=== PATIENT | male | born 1950 | race Caucasian/White ===

== ENCOUNTER → 2019-11-22 13:00 | Outpatient (CLI) | payer OTHER | END | disposition home or self-care (01) | LOC: D.HCCECHO 13:00 | PROVIDERS: ATTEND Internal Medicine Cardiovascular Disease | DX: I10 Essential (primary) hypertension (principal) ==

== ENCOUNTER 2020-02-10 14:30 | Inpatient (IN) | payer MEDICARE ==
[~2020-02-10] VITALS: Ht 182.9 cm; Wt 99.3 kg
[2020-02-10] MEDS ORDERED: GLUCOPHAGE XR750 MG PO (14:43)
[2020-02-10] MEDS ORDERED: BENTYL 20 MG TA20 MG PO (15:00)
[2020-02-10] MEDS ORDERED: SULFAZINE EC500 MG PO (15:01)
[2020-02-10] MEDS ORDERED: BENICAR40 MG PO (15:01)
[2020-02-10] MEDS ORDERED: HYDROCHLOROTH12.5 M1 PO (15:01)
[2020-02-10] MEDS ORDERED: NORVASC5 MG PO (15:01)
[2020-02-10] MEDS ORDERED: GEMFIBROZIL600 MG PO (15:02)
[2020-02-10] MEDS ORDERED: LIPITOR40 MG PO (15:02)
[2020-02-10 15:22] LABS: CALC OSMOLALITY 298 mosm/kg (275-300); CALCIUM 8.6 mg/dL (8.5-10.1); CHLORIDE - SERUM 101 mmol/L (98-107); GLUCOSE 124 mg/dL (74-106); SODIUM 136 mmol/L (136-145); UREA NITROGEN 86 mg/dL (7-18); eGFR NON AFRICAN AMERICAN 8 mL/min (90-120)
[2020-02-10 15:30] LABS: ALBUMIN 4.2 g/dL (3.4-5.0); ALKALINE PHOSPHATASE 102 U/L (30-120); ALT (SGPT) 26 U/L (10-68); BILIRUBIN - TOTAL 0.82 mg/dL (0.2-1.3); MAGNESIUM - SERUM 2.1 mg/dL (1.8-2.4); PROTEIN - SERUM 7.5 g/dL (6.4-8.2)
[2020-02-10 15:31] LABS: TROPONIN-I < 0.017 ng/mL (0.000-0.060)
[2020-02-10 15:43] LABS: BASOPHILS 0.2 % (0-2); EOSINOPHILS 0.5 % (0-7); IMMATURE GRANULOCYTES 0.4 % (0-5); MCHC 34.9 g/dL (31.0-37.0); MCV 94.7 fL (80.0-100.0); MEAN PLATELET VOLUME 10.6 fL (7.4-10.4); MONOCYTES 9.9 % (2-11); PLATELET COUNT 214 10x3/uL (130-400); RBC 4.54 10x6/uL (4.20-6.10); RDW 12.3 % (11.5-14.5); WBC 8.5 10x3/uL (4.8-10.8)
[2020-02-10 17:21] VITALS: BP 113/61
--- NOTE | 2020-02-10 17:25 | NUR ---
URINE SAMPLE OBTAINED AND SENT TO LAB
[2020-02-10 18:06] LABS: BILIRUBIN NEGATIVE (NEGATIVE); KETONE NEGATIVE (NEGATIVE); NITRITE NEGATIVE (NEGATIVE); UROBILINOGEN NORMAL mg/dL (< 2)
[2020-02-10 18:32] VITALS: BP 111/61
[2020-02-10 20:21] VITALS: BP 117/66
[2020-02-10 22:37] VITALS: BP 113/64
[2020-02-11 02:24] VITALS: BP 91/52
--- NOTE | 2020-02-11 02:28 | NUR ---
PT RESTING SUPINE POSITION, VSS. ARROUSES TO VERBAL STIMULI. DENIES CURRENT NEEDS AT THIS TIME. WILL CONTINUE TO MONITOR.
[2020-02-11 03:00] VITALS: BP 91/54
--- NOTE | 2020-02-11 03:50 | NUR ---
PT AMBULATED TO RESTROOM AT THIS TIME WITH STEADY GAIT. DENIES CURRENT NEEDS.
[2020-02-11 04:00] VITALS: BP 101/59
--- NOTE | 2020-02-11 04:07 | NUR ---
STOP TIME FLAGYL [id number].
--- NOTE | 2020-02-11 04:45 | NUR ---
PT RESTING, ON MONITOR. WILL CONTINUE TO MONITOR.
[2020-02-11 05:00] VITALS: BP 95/49
[2020-02-11 08:12] LABS: ANION GAP 17.2 mmol/L (8-16); CALCIUM 8.3 mg/dL (8.5-10.1); CARBON DIOXIDE 17.5 mmol/L (21.0-32.0); PHOSPHOROUS 4.6 mg/dL (2.5-4.9)
[2020-02-11 08:14] LABS: CREATININE - SERUM 3.2 mg/dL (0.6-1.3)
[2020-02-11 08:16] LABS: POTASSIUM - SERUM 2.7 mmol/L (3.5-5.1)
[2020-02-11 08:39] LABS: BASOPHILS 0.2 % (0-2); EOSINOPHILS 2.7 % (0-7); HEMATOCRIT 39.6 % (42.0-54.0); HEMOGLOBIN 13.8 g/dL (13.5-17.5); IMMATURE GRANULOCYTES 0.2 % (0-5); LYMPHOCYTES 21.1 % (15-50); MCH 32.9 pg (26.0-34.0); MCHC 34.8 g/dL (31.0-37.0); MCV 94.5 fL (80.0-100.0); MEAN PLATELET VOLUME 10.4 fL (7.4-10.4); MONOCYTES 10.3 % (2-11); NEUTROPHILS 65.5 % (40-80); PLATELET COUNT 197 10x3/uL (130-400); RBC 4.19 10x6/uL (4.20-6.10); RDW 12.2 % (11.5-14.5)
[2020-02-11 08:43] LABS: WBC 4.4 10x3/uL (4.8-10.8)
--- NOTE | 2020-02-11 08:43 | NUR ---
CRITICAL POTASSIUM REPORTED TO DR. TORRES. ORDERS RECEIVED. PLEASE SEE MAR.
[2020-02-11 08:59] LABS: ALBUMIN 3.6 g/dL (3.4-5.0); ANION GAP 18.2 mmol/L (8-16); BILIRUBIN - TOTAL 0.81 mg/dL (0.2-1.3); CALCIUM 8.1 mg/dL (8.5-10.1); CARBON DIOXIDE 18.5 mmol/L (21.0-32.0); CREATININE - SERUM 3.1 mg/dL (0.6-1.3)
[2020-02-11 09:00] LABS: POTASSIUM - SERUM 2.7 mmol/L (3.5-5.1)
--- NOTE | 2020-02-11 09:21 | NUR ---
SPOKE TO RANJIT AT [facility] FOR [facility] CONSULT. INFORMATION GIVEN
--- NOTE | 2020-02-11 09:23 | NUR ---
SPOKE TO VOISE, AWARE OF CONSULT
[2020-02-11 09:40] LABS: ERYTHROCYTE SEDIMENTATION RATE 10 mm/hr (0-20)
[2020-02-11 12:32] VITALS: BP 108/62
[2020-02-11 14:20] VITALS: Ht 182.9 cm; Wt 99.3 kg
[2020-02-11 20:00] VITALS: BP 113/64
--- NOTE | 2020-02-11 20:03 | NUR ---
INITIAL ROUNDS AND ASSESSMENT COMPLETED. CALL LIGHT IN REACH. NO DISTRESS.
--- NOTE | 2020-02-11 21:01 | NUR ---
BEDTIME MEDS GIVEN. IV SOLUMEDROL ADMINISTERED. IVF NS + 20KCL INFUSING AT 125MLHR TO RFA. PT ALERT AND WATCHING TV/HOCKEY. CPOC. NONLABORED RESPIRATIONS ON ROOM AIR.
[2020-02-12 05:47] LABS: BASOPHILS 0 % (0-2); EOSINOPHILS 0 % (0-7); HEMATOCRIT 34.4 % (42.0-54.0); IMMATURE GRANULOCYTES 0.4 % (0-5); LYMPHOCYTES 12.2 % (15-50); MCH 32.7 pg (26.0-34.0); MCHC 34.9 g/dL (31.0-37.0); MCV 93.7 fL (80.0-100.0); MONOCYTES 5.8 % (2-11); NEUTROPHILS 81.6 % (40-80); PLATELET COUNT 201 10x3/uL (130-400); RBC 3.67 10x6/uL (4.20-6.10); RDW 12.2 % (11.5-14.5)
[2020-02-12 06:11] LABS: IMMUNOGLOBULIN A 207 mg/dL (61-437); IMMUNOGLOBULIN G 598 mg/dL (603-1613)
[2020-02-12 06:14] LABS: ANION GAP 13.5 mmol/L (8-16); CALCIUM 8.3 mg/dL (8.5-10.1); CARBON DIOXIDE 21.7 mmol/L (21.0-32.0)
[2020-02-12 06:19] LABS: CREATININE - SERUM 1.5 mg/dL (0.6-1.3); PHOSPHOROUS 3.3 mg/dL (2.5-4.9); POTASSIUM - SERUM 3.2 mmol/L (3.5-5.1)
[2020-02-12 08:24] VITALS: BP 87/48
[2020-02-12 08:40] VITALS: BP 120/54
--- NOTE | 2020-02-12 08:40 | NUR ---
NOTIFIED BY RADAR ENGINEERING TEACHER OF BP OF 87/48, RECHECKED BP MANUALLY AND IT WAS 120/54. DR. LAWRENCE AT BEDSIDE TO ASSESS PT.
[2020-02-12] MEDS ORDERED: ENTOCORT EC3 MG PO ×2 (10:14→10:15)
[2020-02-12] MEDS ORDERED: LOMOTIL 2.5-0.1 EAC1 PO (10:15)
--- NOTE | 2020-02-12 11:37 | NUR ---
PROVIDED VERBAL AND WRITTEN DISCHARGE TEACHING TO PT, AND PT'S SPOUSE, BOTH VERBALIZED UNDERSTANDING. D/C RT HAND IV WITH CATHETER TIP INTACT. HEART MONITOR REMOVED AND TAKEN TO CARBON FURNACE OPERATOR. WHEELED PT TO ER ENTRANCE WITH ALL BELONGINGS. NAD NOTED.
--- NOTE | 2020-02-12 18:08 | MORECARE ---
CASE MANAGEMENT DISCHARGE SUMMARY PATIENT: WALLY GOMES UNIT: [id number] ADM DATE: 02/10/20 AGE: 69 : 50 SEX: M ROOM/BED: D.2113 AUTHOR: DUSTIN DEXTER PHYSICIAN: REFERRING PHYSICIAN: VELIA TORRES MD DATE OF SERVICE: 02/12/20 Discharge Plan Patient Name: WALLY GOMES Facility: [facility]:[place] : 1950 Planned Disposition: Home Anticipated Discharge Date: 02/12/20 Discharge Date: 02/12/2020 Expected LOS: 2 Initial Reviewer: [email or web address] Initial Review Date: 02/12/2020 Generated: 02/12/20 7:08 pm DCPIA - Discharge Planning Initial Assessment Updated by [id number]: Travis Akhtar on 02/12/20 6:08 pm * Is the patient Alert and Oriented? Yes * How many steps to enter\exit or inside your home? 6/0 * PCP Dr. Torres * [facility] [address] * Preadmission Environment Home with Family * ADLs Independent * Equipment Crutch * Other Equipment Shower Bench * List name and contact numbers for known caregivers / representatives who currently or will assist patient after discharge: Randi Gomes - [facility] - [phone] * Verbal permission to speak to the caregivers and representatives has been obtained from the patient. Yes * Community resources currently utilized None * Please name any agencies selected above. n/a * Additional services required to return to the preadmission environment? No * Can the patient safely return to the preadmission environment? Yes * Has this patient been hospitalized within the prior 30 days at any hospital? No Patient Name: WALLY GOMES Page [id number] at 1808 All edits/amendments must be made on the electronic document DICTATION DATE: 02/12/201807 LOCOMOTIVE INSPECTOR: LALA 02/12/201807 RPT#: [id number] DC DATE:02/12/20 STATUS: DIS IN [facility] [address] [place] [address] END OF REPORT
--- NOTE | 2020-02-13 14:19 | MORECARE ---
CASE MANAGEMENT DISCHARGE SUMMARY PATIENT: WALLY GOMES UNIT: [id number] ADM DATE: 02/10/20 AGE: 69 : 50 SEX: M ROOM/BED: D.4943 AUTHOR: DUSTIN DEXTER PHYSICIAN: REFERRING PHYSICIAN: VELIA TORRES MD DATE OF SERVICE: 02/13/20 Discharge Plan Patient Name: WALLY GOMES Facility: [facility]:[place] : 1950 Planned Disposition: Home Anticipated Discharge Date: 02/12/20 Discharge Date: 02/12/2020 Expected LOS: 2 Initial Reviewer: [email or web address] Initial Review Date: 02/12/2020 Generated: 02/13/20 3:19 pm Comments DCP- Discharge Planning Updated by [email or web address]: Travis Akhtar on 02/12/20 5:[address] Patient Name: WALLY GOMES Admission Status: ER Accout number: [id number] Admission Date: 02-10-2020 : 1950 Admission Diagnosis: Attending: BRIAN, Current LOS: 2 Anticipated DC Date: 02-12-2020 Planned Disposition: Home Primary Insurance: [facility] [employer] Discharge Planning Comments: M met with patient and spouse, Randi Gomes ([phone]) to complete initial dc planning assessment. CM educated patient and spouse on the CM role and verbal consent was given by the patient to complete assessment. CM verified patient's address, phone number, and emergency contact phone numbers. Patient lives at Home with his spouse. At discharge patient plans to return home and feels this is a safe discharge. The patient has 6 steps to navigate to enter the home and it is safe. Patient fills his medications at [facility] [address]. CM discussed availability of home health, rehab services, and medical equipment. Patient states no need of DME and stated that he has a shower bench and crutches at home but does not need them. Patient declined HHS, SNF, IPR, DME and no other known discharge needs were discussed at this time. Transportation provider at discharge will be with his Randi. CM will continue to follow and will assist as needed with dc plans/needs. Obstetrics Gyn Physician: Travis Akhtar DCPIA - Discharge Planning Initial Assessment Updated by [email or web address]: Travis Akhtar on 02/12/20 6:08 pm * Is the patient Alert and Oriented? Yes * How many steps to enter\exit or inside your home? 6/0 * PCP Dr. Torres * Pharm[facility] [address] * Preadmission Environment Home with Family * ADLs Independent * Equipment Crutch * Other Equipment Shower Bench * List name and contact numbers for known caregivers / representatives who currently or will assist patient after discharge: Randi Gomes - [facility] - [phone] * Verbal permission to speak to the caregivers and representatives has been obtained from the patient. Yes * Community resources currently utilized None * Please name any agencies selected above. n/a * Additional services required to return to the preadmission environment? No * Can the patient safely return to the preadmission environment? Yes * Has this patient been hospitalized within the prior 30 days at any hospital? No Coverage Notice Reviewer: JONNY Akhtar Notice Issued Date-Time: 02/12/2020 11:22 Notice Type: IM Discharge Notice Notice Delivered To: Patient Relationship to Patient: Self Branch Controller Name: Delivery Method: HAND - Hand Delivered [place] Days: Prior Verbal Notification: Recipient Understood Notice: Yes Recipient Signature: Yes Med Rec Note Co-signed by Attending: Coverage Notice Comment: DC IMM delivered, explained, signed by the patient, and placed in chart. Signed form also left with the patient. Reviewer: JONNY Akhtar Notice Issued Date-Time: 02/12/2020 11:22 Notice Type: Patient Choice Letter Notice Delivered To: Patient Relationship to Patient: Self Branch Controller Name: Delivery Method: HAND - Hand Delivered [place]id[place] Days: Prior Verbal Notification: Recipient Understood Notice: Yes Recipient Signature: Yes Med Rec Note Co-signed by Attending: Coverage Notice Comment: 0 DME/SNF/HHS/IPR Last DP export: 02/12/20 5:08 p Patient Name: WALLY GOMES Page [phone] at 1419 All edits/amendments must be made on the electronic document DICTATION DATE: 02/13/20 1419 CONTACT LENS POLISHER: LALA 02/13/20 1419 RPT#: [id number] DC DATE:02/12/20 STATUS: DIS IN [facility] [address] [place] [address] END OF REPORT
[2020-02-14 15:11] LABS: ANTIGLIADIN IGA 4 units (0-19); ANTIGLIADIN IGG 1 units (0-19)
== END 2020-02-12 12:01 | disposition home or self-care (01) | DRG 386 ==
LOC: D.ER 14:30 → D.EDHOLD 16:10 → D.M2 16:10
PROVIDERS: Family Medicine; Internal Medicine Gastroenterology; ADMIT Family Medicine; ATTEND Family Medicine
DX: K51.90 Ulcerative colitis, unspecified, without complications (principal); N17.9 Acute kidney failure, unspecified; E86.0 Dehydration; E11.9 Type 2 diabetes mellitus without complications; I10 Essential (primary) hypertension; E87.6 Hypokalemia; K52.832 Lymphocytic colitis

== ENCOUNTER → 2020-07-14 12:03 | Outpatient (CLI) | payer MEDICARE ==
[2020-02-11 14:20] VITALS: BMI 29.7
[~2020-07-14 12:03] MED LIST: BENICAR40 MG PO; BENTYL 20 MG TA20 MG PO; ENTOCORT EC3 MG PO; GEMFIBROZIL600 MG PO; GLUCOPHAGE XR750 MG PO; HYDROCHLOROTH12.5 M1 PO; LIPITOR40 MG PO; LOMOTIL 2.5-0.1 EAC1 PO; NORVASC5 MG PO; SULFAZINE EC500 MG PO
[2020-07-15 10:11] LABS: HEPATITIS C ANTIBODY <0.1 S/CO RAT (0.0-0.9)
== END | disposition home or self-care (01) ==
LOC: D.LAB 12:03
PROVIDERS: ATTEND Internal Medicine Gastroenterology
DX: K51.90 Ulcerative colitis, unspecified, without complications (principal)

== ENCOUNTER 2020-10-31 10:37 | Inpatient (IN) | payer MEDICARE ==
[~2020-10-31] VITALS: Ht 182.9 cm; Wt 98.4 kg
--- NOTE | 2020-10-31 11:51 | NUR ---
PATIENT AAOX4 RESP EVEN AND NON LABORED, NO S/S OF DISTRESS, NO PAIN AT THIS MOMENT, ADMISSION ASSESMENT COMPLETED, IV X1 STICK LEFT FOREARM, NO FURTHER NEEDS AT THIS TIME, CLIR, BLP
[2020-10-31 12:00] VITALS: BP 107/68; BMI 29.5
[2020-10-31 13:42] LABS: BASOPHILS 0.2 % (0-2); EOSINOPHILS 1.6 % (0-7); HEMATOCRIT 48.2 % (42.0-54.0); HEMOGLOBIN 15.9 g/dL (13.5-17.5); LYMPHOCYTES 16.5 % (15-50); MCH 31.2 pg (26.0-34.0); MCHC 33.1 g/dL (31.0-37.0); MCV 94.4 fL (80.0-100.0); MEAN PLATELET VOLUME 8.1 fL (7.4-10.4); MONOCYTES 10.1 % (2-11); NEUTROPHILS 71.6 % (40-80); WBC 6.9 10x3/uL (4.8-10.8)
[2020-10-31 14:02] LABS: ALBUMIN 3.8 g/dL (3.4-5.0); BILIRUBIN - TOTAL 0.54 mg/dL (0.2-1.3); CARBON DIOXIDE 18.2 mmol/L (21.0-32.0); CREATININE - SERUM 1.5 mg/dL (0.6-1.3); POTASSIUM - SERUM 4.2 mmol/L (3.5-5.1); PROTEIN - SERUM 7.4 g/dL (6.4-8.2)
[2020-10-31 14:10] LABS: PLATELET COUNT 152 10x3/uL (130-400)
[2020-10-31 14:14] LABS: BILIRUBIN NEGATIVE (NEGATIVE); GRANULAR CAST 2 LPF (0-1); KETONE NEGATIVE mg/dL (< 1+); NITRITE NEGATIVE (NEGATIVE); UROBILINOGEN NORMAL mg/dL (< 2); WAXY CAST 1 LPF (0-1); WHITE CELLS - URINE <1 HPF (0-1)
[2020-10-31 16:13] VITALS: BP 102/66
[2020-10-31 20:00] VITALS: BP 110/69
--- NOTE | 2020-10-31 20:00 | NUR ---
PT IS LYING QUIETLY IN HIS ROOM. HE HAS NO C/O AT THIS TIME. PT STATES HE IS NOT A DIABETIC ANY MORE AND DOESN'T THINK A BLOOD SUGAR IS NECESSARY, SO HE REFUSED. HE STARTED TELLING ME ABOUT ALL HIS AILMENTS AND HOW HE WAS GOING TO TREAT THEM. HE IS RECEIVING NS AT 75ML/HR IN THE LEFT FOREARM. HE IS ON TELE. HE IS UP AD JOANA IN HIS ROOM. HE DOES NOT REQUIRE ANY O2 AT THIS TIME. HIS HAS BEEN TO SEE HIM TODAY.
[2020-11-01] VITALS: BP 101/61
[2020-11-01 04:00] VITALS: BP 114/69
[2020-11-01 06:20] LABS: BASOPHILS 0.2 % (0-2); EOSINOPHILS 2.5 % (0-7); HEMATOCRIT 40.1 % (42.0-54.0); HEMOGLOBIN 13.3 g/dL (13.5-17.5); LYMPHOCYTES 24.8 % (15-50); MCH 31.3 pg (26.0-34.0); MCHC 33.3 g/dL (31.0-37.0); MEAN PLATELET VOLUME 8.5 fL (7.4-10.4); MONOCYTES 11.2 % (2-11); NEUTROPHILS 61.3 % (40-80); PLATELET COUNT 135 10x3/uL (130-400); RBC 4.26 10x6/uL (4.20-6.10); RDW 13.5 % (11.5-14.5)
[2020-11-01 07:22] LABS: ALBUMIN 2.9 g/dL (3.4-5.0); ANION GAP 18.5 mmol/L (8-16); BILIRUBIN - TOTAL 0.44 mg/dL (0.2-1.3); C-REACTIVE PROTEIN 0.5 mg/dL (0.0-0.9); CALCIUM 7.8 mg/dL (8.5-10.1); CARBON DIOXIDE 17.5 mmol/L (21.0-32.0); CREATININE - SERUM 1.3 mg/dL (0.6-1.3); MAGNESIUM - SERUM 1.8 mg/dL (1.8-2.4); PHOSPHOROUS 3.5 mg/dL (2.5-4.9); PROTEIN - SERUM 5.9 g/dL (6.4-8.2)
--- NOTE | 2020-11-01 07:40 | NUR ---
Lying in bed, awake/alert/oriented, T/R self ad catalina, cont of B/B with BRPs per self ad catalina, denies pain/other discomfort at this time, call light/phone/water within reach, no s/s of acute distress observed.
[2020-11-01 08:27] VITALS: BP 99/62
[2020-11-01 11:03] LABS: ERYTHROCYTE SEDIMENTATION RATE 10 mm/hr (0-20)
[2020-11-01 11:45] VITALS: BP 111/72
[2020-11-01 12:24] VITALS: Ht 182.9 cm; Wt 98.4 kg
[2020-11-01 15:56] VITALS: BP 108/67
--- NOTE | 2020-11-01 19:30 | NUR ---
PT RESTING IN BED. DENIES NEEDS AT THIS TIME. 24 HOUR IN PROGRESS, WILL STOP AT 0930 ON 11/02. RR EVEN AND UNLABORED. NO ACUTE DISTRESS. CL IN REACH.
[2020-11-01 20:00] VITALS: BP 117/72
[2020-11-02] VITALS: BP 115/62
[2020-11-02 04:00] VITALS: BP 165/72
[2020-11-02 06:10] LABS: BASOPHILS 0.2 % (0-2); EOSINOPHILS 2.5 % (0-7); HEMOGLOBIN 13.4 g/dL (13.5-17.5); MCH 31.3 pg (26.0-34.0); MCHC 33.5 g/dL (31.0-37.0); MCV 93.3 fL (80.0-100.0); MEAN PLATELET VOLUME 8.4 fL (7.4-10.4); MONOCYTES 8.8 % (2-11); NEUTROPHILS 64.5 % (40-80); PLATELET COUNT 150 10x3/uL (130-400); RBC 4.29 10x6/uL (4.20-6.10); RDW 13.4 % (11.5-14.5)
[2020-11-02 06:48] LABS: ALBUMIN 2.8 g/dL (3.4-5.0); ANION GAP 13.8 mmol/L (8-16); BILIRUBIN - TOTAL 0.53 mg/dL (0.2-1.3); CALCIUM 8.1 mg/dL (8.5-10.1); CARBON DIOXIDE 21.4 mmol/L (21.0-32.0); CREATININE - SERUM 1.1 mg/dL (0.6-1.3); MAGNESIUM - SERUM 1.7 mg/dL (1.8-2.4); POTASSIUM - SERUM 4.2 mmol/L (3.5-5.1); PROTEIN - SERUM 5.9 g/dL (6.4-8.2)
[2020-11-02 08:44] VITALS: BP 109/69
[2020-11-02 14:30] LABS: CREATININE - URINE 108.8 mg/dL (30-125)
== END 2020-11-02 13:58 | disposition home or self-care (01) | DRG 386 ==
LOC: D.OPS 10:37 → D.M2 10:39
PROVIDERS: Family Medicine; ADMIT Emergency Medicine; ATTEND Emergency Medicine
DX: K51.90 Ulcerative colitis, unspecified, without complications (principal); N17.9 Acute kidney failure, unspecified; K52.832 Lymphocytic colitis; I12.9 Hypertensive chronic kidney disease with stage 1 through stage 4 chronic kidney disease, or unspecified chronic kidney disease; E11.22 Type 2 diabetes mellitus with diabetic chronic kidney disease; N18.9 Chronic kidney disease, unspecified; E87.8 Other disorders of electrolyte and fluid balance, not elsewhere classified